=== PATIENT | female | born 1965 | race Caucasian/White ===

== ENCOUNTER 2017-05-02 21:01 | Emergency (ER) | payer BC ==
[2017-05-02 21:46] VITALS: BP 169/92
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
[2017-05-02] MEDS ORDERED: Proparacaine 0.5% Ophth Soln 15 ML Bottle EYELF ONE (22:07)
[2017-05-02] MEDS ORDERED: Benoxinate/Fluorescein 0.4-0.25% Ophth Soln 5 ML Bottle EYELF ONE (22:07)
--- NOTE | 2017-05-05 14:37 | CR ---
Cervical spine: AP, lateral and odontoid views of the cervical spine were obtained. Comparison: Previous cervical spine MRI dated 06/11/16. Anterior plate and screws are identified at C5-C6 and C6-C7 with intervertebral disc fixation. This is an interval change from prior MRI. Other discs are maintained. Vertebral body heights are maintained. Prevertebral soft tissues are normal. Mild carotid artery calcification is seen. No subluxation or fracture is seen. Impression: 1. Previous surgery at C5-C6 and C6-C7. 2. Carotid artery calcification. Nothing acute seen on three-view cervical spine exam. Diagnostic code #2 Agree with preliminary report issued by [facility] ([facility] preliminary report dictated on 05/03/17, 12:27 AM Central Time)
== END 2017-05-03 00:24 | disposition home or self-care (01) ==
LOC: JD.ED 21:01
DX: S16.1XXA Strain of muscle, fascia and tendon at neck level, initial encounter (principal); S05.92XA Unspecified injury of left eye and orbit, initial encounter; H54.7 Unspecified visual loss; F17.210 Nicotine dependence, cigarettes, uncomplicated; Z90.710 Acquired absence of both cervix and uterus; Z88.2 Allergy status to sulfonamides; Z79.899 Other long term (current) drug therapy; Y04.0XXA Assault by unarmed brawl or fight, initial encounter
CPT/HCPCS: 72040; 72040-26; 99283

== ENCOUNTER 2022-12-08 22:15 | Emergency (ER) | payer BC ==
[2022-12-08 23:25] LABS: CORONAVIRUS COVID-19 NAA NEGATIVE (NEGATIVE)
[2022-12-08] MEDS ORDERED: Lactated Ringers 2,000 ML IV ONE (23:40)
[2022-12-09] MEDS ORDERED: Lactated Ringers 1,000 ML ONE (01:17)
[2022-12-09] MEDS ORDERED: HYDROmorphone 1 MG/ML Syringe IVPUSH ONE ×2 (01:27→04:47)
[2022-12-09] MEDS ORDERED: Ondansetron 4 MG/2 ML SDV IVPUSH ONE (01:27)
[2022-12-09] MEDS ORDERED: cefTRIAXone 1 GM Vial IV ONE (02:57)
[2022-12-09] MEDS ORDERED: Sodium Chloride 0.9% 100 ML ONE (03:16)
[2022-12-09] MEDS ORDERED: Acetaminophen/oxyCODONE 325-5 MG Tab PO ONE (05:52)
[2022-12-09 07:20] VITALS: BP 92/58; PULSE 102
== END 2022-12-09 07:26 | disposition home or self-care (01) ==
LOC: JD.ED 22:15
DX: N39.0 Urinary tract infection, site not specified (principal); N17.9 Acute kidney failure, unspecified; R73.9 Hyperglycemia, unspecified; N20.1 Calculus of ureter; E78.00 Pure hypercholesterolemia, unspecified; I10 Essential (primary) hypertension; Z72.0 Tobacco use; Z88.2 Allergy status to sulfonamides; Z79.899 Other long term (current) drug therapy; Z20.822 Contact with and (suspected) exposure to COVID-19
CPT/HCPCS: 0241U; 36415; 71045; 74176; 80053; 81001; 83605; 84145; 85025; 85610; 85730; 87040; 87077; 87154; 87186; 96361; 96365; 96374; 96375; 99284; A9270; J0696; J1170; J2405; J7120

== ENCOUNTER 2022-12-09 19:33 | Inpatient (IN) | payer BC ==
[2022-12-09] MEDS ORDERED: Sodium Chloride 0.9% 1,000 ML IV ONE (20:06)
[2022-12-09] MEDS ORDERED: Meropenem Premix 500 MG in Premix Bag 1 BAG IV ONE (20:10)
[2022-12-09] MEDS ORDERED: Ketorolac 15 MG/ML SDV IVPUSH ONE (20:11)
[2022-12-09] MEDS ORDERED: Cefepime 2 GM in Sodium Chloride 0.9% 50 ML IV ONE (20:33)
[2022-12-09] MEDS: cefTRIAXone 2 GM in Sodium Chloride 0.9% 100 ML IV SCH (22:18)
[2022-12-09] MEDS: Acetaminophen 325 MG Tab PO PRN (23:44)
[2022-12-10] MEDS: Metoprolol Succinate 50 MG Tab.ER PO SCH (08:15)
[2022-12-10] MEDS: oxyCODONE 5 MG Tab PO PRN ×3 (08:15→22:20)
[2022-12-10] MEDS: atorvaSTATin 20 MG Tab PO SCH (08:16)
[2022-12-10] MEDS: Enoxaparin 40 MG/0.4 ML Syringe SUBCUT SCH (08:16)
[2022-12-10] MEDS: cefTRIAXone 2 GM in Sodium Chloride 0.9% 100 ML IV SCH ×2 (20:43→21:01)
[2022-12-10] MEDS: Acetaminophen 325 MG Tab PO PRN (22:19)
[2022-12-11] MEDS: oxyCODONE 5 MG Tab PO PRN (07:39)
[2022-12-11] MEDS: Acetaminophen 325 MG Tab PO PRN (07:39)
[2022-12-11] MEDS: Enoxaparin 40 MG/0.4 ML Syringe SUBCUT SCH (08:17)
[2022-12-11] MEDS: atorvaSTATin 20 MG Tab PO SCH (08:17)
[2022-12-11] MEDS: Metoprolol Succinate 50 MG Tab.ER PO SCH (08:17)
[2022-12-11 08:18] VITALS: BP 118/71; PULSE 106
== END 2022-12-11 12:30 | disposition home or self-care (01) | DRG 720 ==
LOC: JD.ED 19:33 → JD.MS 21:42
PROVIDERS: ADMIT Internal Medicine; ATTEND Internal Medicine
DX: A41.51 Sepsis due to Escherichia coli [E. coli] (principal); N39.0 Urinary tract infection, site not specified; K57.30 Diverticulosis of large intestine without perforation or abscess without bleeding; R09.02 Hypoxemia; H54.7 Unspecified visual loss; M54.9 Dorsalgia, unspecified; G89.29 Other chronic pain; M54.2 Cervicalgia; E78.00 Pure hypercholesterolemia, unspecified; I10 Essential (primary) hypertension; F17.200 Nicotine dependence, unspecified, uncomplicated; R32 Unspecified urinary incontinence; E78.5 Hyperlipidemia, unspecified; Z88.2 Allergy status to sulfonamides; Z79.899 Other long term (current) drug therapy; Z90.710 Acquired absence of both cervix and uterus; Z98.41 Cataract extraction status, right eye; Z98.42 Cataract extraction status, left eye
CPT/HCPCS: 36415; 71045; 71045-26; 80048; 80053; 81001; 83605; 83735; 85025; 85027; 87086; 94761; 99285; A9270-GY; J0692; J0696; J1650; J1885; J7030

== ENCOUNTER 2024-07-25 19:27 | Emergency (ER) | payer BC ==
[2024-07-25 19:43] VITALS: PULSE 82
[2024-07-25] MEDS: Orphenadrine 60 MG/2 ML Inj IV ONE (20:15)
[2024-07-25] MEDS: Sodium Chloride 0.9% 10 ML Syringe FLUSH PRN (20:15)
[2024-07-25] MEDS: Ketorolac 30 MG/ML SDV IVPUSH ONE (20:15)
[2024-07-25 20:17] LABS: BASOPHILS PERCENT AUTO 0.3 % (0.0-1.0); EOSINOPHILS ABSOLUTE AUTO 0.1 K/mm3 (0.0-0.4); EOSINOPHILS PERCENT AUTO 2.4 % (0.0-6.0); HEMATOCRIT 28.4 % (37.0-47.0); HEMOGLOBIN 9.6 gm/dl (12.0-16.0); IMMATURE GRAN ABSOLUTE AUTO 0.02 K/mm3 (0.00-0.05); IMMATURE GRAN PERCENT AUTO 0.3 % (0.0-0.4); LYMPHOCYTES ABSOLUTE AUTO 1.4 K/mm3 (1.0-4.8); LYMPHOCYTES PERCENT AUTO 24.4 % (24.0-44.0); MEAN CORPUSCULAR HEMOGLOBIN 32.1 pg (28.0-32.0); MEAN CORPUSCULAR HGB CONC 33.8 g/dl (32.0-36.0); MEAN PLATELET VOLUME 9.2 fl (9.4-12.3); MONOCYTES ABSOLUTE AUTO 0.4 K/mm3 (0.0-0.8); MONOCYTES PERCENT AUTO 6.3 % (0.0-8.0); NEUTROPHILS ABSOLUTE AUTO 3.9 K/mm3 (1.8-7.7); NEUTROPHILS PERCENT AUTO 66.3 % (41.0-71.0); PLATELET COUNT,PLT 225 K/mm3 (150-400); RED BLOOD CELL COUNT 2.99 M/mm3 (4.10-5.30); WHITE BLOOD CELL COUNT,WBC 5.87 K/mm3 (3.9-11.3)
[2024-07-25 20:38] LABS: A/G RATIO 0.8 (1-2); ANION GAP 8.6 (5-15); BILIRUBIN TOTAL 0.6 mg/dL (0.2-1.0); BUN/CREATININE RATIO 17.5 (14-18); C-REACTIVE PROTEIN 10.98 mg/dL (<0.30); CALCIUM 9.2 mg/dL (8.5-10.1); CREATININE 0.8 mg/dL (0.55-1.02); POTASSIUM,K 3.6 mEq/L (3.5-5.1); PROTEIN TOTAL,TP 6.9 g/dl (6.4-8.2)
[2024-07-25 21:53] LABS: APPEARANCE,URINE CLEAR (Clear); BILIRUBIN,URINE NEGATIVE (Negative); COLOR,URINE LIGHT YELLOW (Yellow); GLUCOSE,URINE NEGATIVE (Negative); KETONES,URINE NEGATIVE (Negative); LEUKOCYTE ESTERASE,URINE NEGATIVE (Negative); NITRITE,URINE NEGATIVE (Negative); OCCULT BLOOD,URINE NEGATIVE (Negative); PH,URINE 6.5 (5.0-8.0); PROTEIN,URINE NEGATIVE (Negative); UROBILINOGEN,URINE 0.2 (0.2-1.0)
[2024-07-25 22:26] VITALS: BP 115/61
== END 2024-07-25 22:24 | disposition home or self-care (01) ==
LOC: JD.ED 19:27
DX: G89.18 Other acute postprocedural pain (principal); I10 Essential (primary) hypertension; E78.00 Pure hypercholesterolemia, unspecified; Z90.710 Acquired absence of both cervix and uterus; Z79.899 Other long term (current) drug therapy; Z88.2 Allergy status to sulfonamides
CPT/HCPCS: 36415; 80053; 81003; 85025; 86140; 96374; 96375; 99283; J1885; J2360; J3490